=== PATIENT | male | born 1955 | race Caucasian/White ===

== ENCOUNTER 2020-01-30 21:31 | Emergency (ER) | payer OTHER ==
[2020-01-30 21:41] VITALS: TEMP 98
--- NOTE | 2020-01-30 22:11 | ED ---
Fall HPI - General Chief Complaint: Fall Stated Complaint: fall, head injury Time Seen by Provider: 01/30/20 21:49 Source: EMS Mode of arrival: EMS - History of Present Illness Initial Comments: This patient is 64-year-old man who presents to be evaluated after he fell on stairs tonight. The patient states that he was at home. He states he was going up the stairs and "I was carrying too much and had had a few drinks, lost my balance and fell." Patient indicates that he has a little bit of head pain in the area where he has a laceration or contusion. He states he also has some pain at the lower part of his neck. He believes that his last tetanus shot was given within the last 10 years. The patient's states that the patient was unconscious for up to a minute. MD Complaint: fall -: minutes(s) Fall From: down stairs (#) (15) When Fall Occurred: 1 hour [employer]HRO[employer] Fall Witnessed: yes, by family Place Fall Occurred: home Loss of Consciousness: yes Prolonged Down Time?: no Symptoms Prior to Fall: none Location: head, neck Severity: mild Quality: dull Context: tripped/slipped, alcohol use Associated Symptoms: headache, neck pain - Related Data Allergies Allergy/AdvReac Type Severity Reaction Status Date / Time bee pollen Allergy Anaphylaxis Verified 01/30/20 21:41 Review of Systems ROS Statement: Those systems with pertinent positive or pertinent negative responses have been documented in the HPI. ROS Other: All systems not noted in ROS Statement are negative. Constitutional: Denies: fever, weakness Eyes: Denies: vision change Respiratory: Denies: cough, dyspnea Cardiovascular: Denies: chest pain, palpitations, syncope Gastrointestinal: Denies: abdominal pain, nausea, vomiting Musculoskeletal: Denies: back pain Skin: Reports: lesions (Scalp laceration) Neurological: Reports: headache. Denies: weakness, numbness, confusion Hematological/Lymphatic: Denies: easy bleeding Past Medical History Past Medical History: Hypertension History of Any Multi-Drug Resistant Organisms: None Reported Past Surgical History: Hernia Repair Past Psychological History: No Psychological Hx Reported Smoking Status: Current some day smoker Past Alcohol Use History: Occasional Past Drug Use History: None Reported General Exam Limitations: no limitations General appearance: alert, in no apparent distress Head exam: Present: normocephalic, other (There is an approximately 3 cm scalp laceration to the right of the occiput. No palpable deformity. Minimal soft tissue tenderness. Minimal swelling) Eye exam: Present: normal appearance, PERRL, EOMI. Absent: scleral icterus, conjunctival injection Neck exam: Present: normal inspection. Absent: tenderness, meningismus Respiratory exam: Present: normal lung sounds bilaterally. Absent: respiratory distress, wheezes, rales, rhonchi, stridor Cardiovascular Exam: Present: regular rate, normal rhythm, normal heart sounds. Absent: systolic murmur, diastolic murmur, rubs, gallop GI/Abdominal exam: Present: soft. Absent: distended, tenderness, guarding, rebound, rigid, mass Extremities exam: Present: normal inspection, normal capillary refill. Absent: pedal edema, calf tenderness Back exam: Present: normal inspection. Absent: CVA tenderness (R), CVA tenderness (L), vertebral tenderness Neurological exam: Present: alert, oriented X3, CN II-XII intact. Absent: motor sensory deficit Skin exam: Present: warm, dry, intact, normal color. Absent: rash Course Vital Signs 01/30/20 21:36 Temperature 98 F Pulse Rate 92 Respiratory 16 Rate Blood Pressure 143/81 O2 Sat by Pulse 94 L Oximetry Procedures - Laceration Laceration #1 Consent Obtained: verbal consent Indication: laceration Site: scalp Size (cm): 3 Description: linear Depth: simple, single layer Anesthetic Used: lidocaine 1% Anesthesia Technique: local infiltration Amount (mls): 2 Type of Sutures: other (Hayes) Number of Sutures: 5 Technique: other (Hayes) Patient Tolerated Procedure: well, no complications Medical Decision Making - Lab Data Result diagrams: 01/30/20 22:08 01/30/20 22:08 Lab Results 01/30/20 01/30/20 01/30/20 Range/Units 22:08 22:08 22:08 WBC 8.4 (3.8-10.6) k/uL RBC 4.31 (4.30-5.90) m/uL Hgb 14.4 (13.0-17.5) gm/dL Hct 43.3 (39.0-53.0) % MCV 100.3 H (80.0-100.0) fL MCH 33.3 (25.0-35.0) pg MCHC 33.2 (31.0-37.0) g/dL RDW 12.9 (11.5-15.5) % Plt Count 136 L (150-450) k/uL Neutrophils % 46 % Lymphocytes % 37 % Monocytes % 7 % Eosinophils % 5 % Basophils % 1 % Neutrophils # 3.8 (1.3-7.7) k/uL Lymphocytes # 3.1 (1.0-4.8) k/uL Monocytes # 0.6 (0-1.0) k/uL Eosinophils # 0.4 (0-0.7) k/uL Basophils # 0.1 (0-0.2) k/uL PT 10.1 (9.0-12.0) sec INR 1.0 (<1.2) APTT 19.0 L (22.0-30.0) sec Sodium 138 (137-145) mmol/L Potassium 3.4 L (3.5-5.1) mmol/L Chloride 104 (98-107) mmol/L Carbon Dioxide 26 (22-30) mmol/L Anion Gap 8 mmol/L BUN 15 (9-20) mg/dL Creatinine 0.66 (0.66-1.25) mg/dL Est GFR (CKD-EPI)AfAm >90 (>60 ml/min/1.73 sqM) Est GFR (CKD-EPI)NonAf >90 (>60 ml/min/1.73 sqM) Glucose 123 H (74-99) mg/dL Calcium 9.2 (8.4-10.2) mg/dL Total Bilirubin 0.6 (0.2-1.3) mg/dL AST 71 H (17-59) U/L ALT 79 H (4-49) U/L Alkaline Phosphatase 78 (38-126) U/L Total Protein 6.6 (6.3-8.2) g/dL Albumin 4.3 (3.5-5.0) g/dL Serum Alcohol 216 H* mg/dL - EKG Data -: EKG Interpreted by Me EKG shows normal: sinus rhythm, axis (Normal), intervals (Normal), QRS complexes (Incomplete right bundle branch block.) Rate: normal (Rate 91 bpm) Disposition Clinical Impression: Fall, Head injury, Alcohol intoxication, Scalp laceration Disposition: HOME SELF-CARE Condition: Good Instructions (If sedation given, give patient instructions): Laceration (ED), Head Injury (ED) Is patient prescribed a controlled substance at d/c from ED?: No Referrals: Sebastian Friedman MD [Primary Care Provider] - 1-2 days
[2020-01-30 22:18] LABS: Basophils # (A) 0.1 k/uL (0-0.2); Basophils % (A) 1 %; Eosinophils # (A) 0.4 k/uL (0-0.7); Eosinophils % (A) 5 %; HCT 43.3 % (39.0-53.0); HGB 14.4 gm/dL (13.0-17.5); Lymphocytes # (A) 3.1 k/uL (1.0-4.8); Lymphocytes % (A) 37 %; MCH 33.3 pg (25.0-35.0); MCHC 33.2 g/dL (31.0-37.0); MCV 100.3 fL (80.0-100.0); Mean Platelet Volume 7.7; Monocytes # (A) 0.6 k/uL (0-1.0); Monocytes % (A) 7 %; Neutrophils # (A) 3.8 k/uL (1.3-7.7); Neutrophils % (A) 46 %; Platelet Count 136 k/uL (150-450); RBC 4.31 m/uL (4.30-5.90); RDW 12.9 % (11.5-15.5); WBC 8.4 k/uL (3.8-10.6)
[2020-01-30 22:26] LABS: ALT 79 U/L (4-49); AST 71 U/L (17-59); African American GFR (CKD) >90 (>60 ml/min/1.73 sqM); Albumin 4.3 g/dL (3.5-5.0); Alkaline Phosphatase 78 U/L (38-126); Anion Gap 8 mmol/L; Blood Urea Nitrogen 15 mg/dL (9-20); Calcium 9.2 mg/dL (8.4-10.2); Carbon Dioxide 26 mmol/L (22-30); Chloride 104 mmol/L (98-107); Glucose 123 mg/dL (74-99); Non-African American GFR(CKD) >90 (>60 ml/min/1.73 sqM); Potassium 3.4 mmol/L (3.5-5.1); Sodium 138 mmol/L (137-145); Total Bilirubin 0.6 mg/dL (0.2-1.3); Total Protein 6.6 g/dL (6.3-8.2)
[2020-01-30 22:29] LABS: Alcohol 216 mg/dL
[2020-01-30 22:33] LABS: Prothrombin Time 10.1 sec (9.0-12.0)
--- NOTE | 2020-01-30 22:34 | CT ---
EXAMINATION TYPE: CT brain cspine wo con DATE OF EXAM: 01/30/2020 COMPARISON: None HISTORY: Fall down stairs. CT DLP: 1421.4 mGycm Automated exposure control for dose reduction was used. There is cerebral atrophy. There is no mass effect nor midline shift. There is no sign of intracrania l hemorrhage. Calvarium is intact. Skull base is intact. There is normal aeration of the mastoid sinu ses. Cervical vertebra have normal spacing and alignment. Posterior elements are intact. Facet joints are intact. There is no evidence of cervical spine fracture. Prevertebral soft tissues appear normal. IMPRESSION: Mild cerebral atrophy. No acute intracranial abnormality. Negative CT scan cervical spine.
[2020-01-30] MEDS ORDERED: LIDOCAINE 1% INJ 10MG/ML (20 ML MDV) SQ ONE (23:02)
[2020-01-30 23:36] VITALS: BP 119/68; PULSE 88; RESP 20
== END 2020-01-30 23:36 | disposition home or self-care (01) ==
LOC: EC 21:31
DX: S01.01XA Laceration without foreign body of scalp, initial encounter (principal); F10.129 Alcohol abuse with intoxication, unspecified; F17.200 Nicotine dependence, unspecified, uncomplicated; Z91.030 Bee allergy status; W10.9XXA Fall (on) (from) unspecified stairs and steps, initial encounter; Y93.01 Activity, walking, marching and hiking; Y92.009 Unspecified place in unspecified non-institutional (private) residence as the place of occurrence of the external cause
CPT/HCPCS: 36415; 93005; 80053; 85025; 85610; 85730; 80320; 72125; 70450; 99284; 12002; J2001

== ENCOUNTER 2022-11-20 05:59 | Day surgery (SDC) | payer MEDICARE, OTHER ==
[2022-11-14 14:11] VITALS: BMI 26.6
[2022-11-20 06:31] VITALS: RESP 16; TEMP 97.6
[2022-11-20] MEDS ORDERED: LACTATED RINGERS 1,000 ML IV ONE (06:40)
[2022-11-20] MEDS ORDERED: LIDOCAINE 1% (10MG/ML) FOR IV START INTRADERMA ONE (06:40)
[2022-11-20 06:47] LABS: Glucose,Whole Blood 123 mg/dL (70-110)
[2022-11-20] MEDS ORDERED: LIDOCAINE 2% INJ 20 MG/ML (2 ML VIAL) ONE (07:00)
[2022-11-20] MEDS ORDERED: PROPOFOL 10 MG/ML 20 ML VIAL IV ONE (07:00)
--- NOTE | 2022-11-20 07:37 | P.PCN ---
Date of Procedure: 11/20/22 Procedure(s) Performed: BRIEF HISTORY: Patient is a 67-year-old pleasant white male scheduled for an elective colonoscopy as a part of evaluation of prior history of colon polyps and positive cologuard. PROCEDURE PERFORMED: Colonoscopy with biopsy and snare polypectomy. PREOPERATIVE DIAGNOSIS: History of colon polyps and positive cologuard. IV sedation per Anesthesia. PROCEDURE: After informed consent was obtained, the patient, was brought into the endoscopy unit. IV sedation was administered by Anesthesia under continuous monitoring. Digital rectal examination was normal. Initially the Olympus CF-160 flexible video colonoscope was then inserted in the rectum, gradually advanced into the cecum without any difficulty. Careful examination was performed as the scope was gradually being withdrawn. Ileocecal valve and the appendiceal orifice were visualized and appeared normal. Prep was excellent. Mucosa of the cecum, and a 3 mm polyp that was removed by cold biopsy. In the ascending colon there was another 3 mm polyp that was removed by cold biopsy. The hepatic flexure was a 2 mm sessile polyp removed by cold biopsy. Rest of the ascending colon, transverse colon, descending colon, appeared normal. The sigmoid colon there was a 5 mm and 1 cm polyp removed by snare polypectomy. In the rectum there was a 5 mm polyp that was removed by cold snare polypectomy. Scattered left-sided diverticulosis seen. Rest of the sigmoid colon, and rectum appeared normal. Retroflexion was performed in the rectum and no lesions were seen. The patient tolerated the procedure well. IMPRESSION: 3 mm cecal polyp status post cold biopsy 3 mm ascending colon polyp status post cold biopsy 2 mm hepatic flexure polyp status post cold biopsy 1 cm sigmoid colon polyp status post polypectomy 5 mm rectal polyp status post cold snare polypectomy Scattered sigmoid diverticulosis RECOMMENDATIONS: Findings of this examination were discussed with the patient as well as some his family. He was advised to follow with the biopsy results. If the biopsies adenoma he can have a repeat colonoscopy in 3 years..
[2022-11-20 07:44] LABS: Glucose,Whole Blood 130 mg/dL (70-110)
[2022-11-20 07:50] VITALS: BP 138/81; PULSE 78
== END 2022-11-20 08:29 | disposition home or self-care (01) ==
LOC: ORWHC2ENDO 05:59
PROVIDERS: ATTEND Internal Medicine Gastroenterology
DX: D12.2 Benign neoplasm of ascending colon (principal); D12.3 Benign neoplasm of transverse colon; D12.5 Benign neoplasm of sigmoid colon; D12.8 Benign neoplasm of rectum; I10 Essential (primary) hypertension; E78.5 Hyperlipidemia, unspecified; K57.30 Diverticulosis of large intestine without perforation or abscess without bleeding; Z86.010 Personal history of colon polyps; Z91.030 Bee allergy status; Z87.442 Personal history of urinary calculi; Z79.899 Other long term (current) drug therapy
CPT/HCPCS: 88305; 45380; 45385; J2704; J2001

== ENCOUNTER → 2023-03-17 | Outpatient (CLI) | payer MEDICARE, OTHER ==
[2023-03-17 09:40] LABS: African American GFR (CKD) >90 (>60 ml/min/1.73 sqM); Blood Urea Nitrogen 13 mg/dL (9-20); Non-African American GFR(CKD) >90 (>60 ml/min/1.73 sqM)
--- NOTE | 2023-03-17 12:30 | CT ---
EXAMINATION TYPE: CT urogram wo/w con CT DLP: 3320 mGycm, Automated exposure control for dose reduction was used. DATE OF EXAM: 03/17/2023 11:20 AM COMPARISON: None CLINICAL INDICATION:Male, 68 years old with history of R31.9 hematuria; PHH, Hematuria TECHNIQUE: Urogram of the abdomen and pelvis was performed before and after the administration of 100 cc of IV c ontrast Isovue 300 contrast. Delayed imaging was performed. Coronal and sagittal reformats were perfo rmed. One or more CT dose reduction strategies were utilized during this examination. 2D and 3D recon structions are performed to assist visualization of the urinary tract on a separate workstation. FINDINGS: GENITOURINARY: RIGHT KIDNEY AND URETER: Nonobstructive right upper pole 6 mm calculus. No hydronephrosis or hydroure ter. No renal mass or other lesions. No urothelial lesions: no filling defect, dilation, stricture or wall thickening. LEFT KIDNEY AND URETER: No calculi. No hydronephrosis or hydroureter. No renal mass or other lesions. No urothelial lesions: no filling defect, dilation, stricture or wall thickening. URINARY BLADDER: There is a lobulated filling defect extending from the left lateral urinary bladder wall measuring 2.0 x 1.2 x 1.5 cm (series 15, image 81 and series 17, image 101). REPRODUCTIVE: Unremarkable. ABDOMEN LIVER: Diffusely hypoattenuating, consistent with hepatic steatosis.. Enlarged measuring 24.7 cm in C C dimension. GALLBLADDER AND BILE DUCTS: Mildly distended gallbladder. No biliary duct dilatation. PANCREAS: Unremarkable. SPLEEN: Unremarkable. ADRENAL GLANDS: Unremarkable. STOMACH AND BOWEL: Distal colonic diverticulosis without evidence for acute diverticulitis. No eviden ce of bowel obstruction. PERITONEUM: No evidence of pneumoperitoneum or adenopathy. Trace free fluid in the pelvis. VASCULATURE: Atherosclerotic calcifications are present throughout the abdominal aorta and its branch es. No abdominal aortic aneurysm. MUSCULOSKELETAL: . SOFT TISSUE/ABDOMINAL WALL: Small fat filled periumbilical hernia. Post surgical changes from right i nguinal hernia repair. LOWER CHEST: Bibasilar linear scarring and/or atelectasis.. IMPRESSION: 1. Left urinary bladder wall lobulated 2.0 cm mass concerning for bladder malignancy until proven oth erwise. Direct visualization is recommended. 2. No evidence of renal neoplasm. 3. Nonobstructive 6 mm right renal calculus. 4. Colonic diverticulosis without evidence for acute diverticulitis. 5. Hepatic steatosis with hepatomegaly.
== END | disposition home or self-care (01) ==
LOC: RADCTMAIN 08:49
PROVIDERS: ATTEND Urology
DX: N20.0 Calculus of kidney (principal); K57.30 Diverticulosis of large intestine without perforation or abscess without bleeding; K76.0 Fatty (change of) liver, not elsewhere classified; N32.89 Other specified disorders of bladder; R16.0 Hepatomegaly, not elsewhere classified; R31.0 Gross hematuria
CPT/HCPCS: 82565; 84520; 74178; 36415; 74400; Q9967

== ENCOUNTER → 2024-06-09 | Outpatient (CLI) | payer MEDICARE, OTHER ==
--- NOTE | 2024-06-09 22:40 | MR ---
EXAMINATION TYPE: MR liver wo/w con DATE OF EXAM: 06/09/2024 9:41 PM INDICATION: Patient age:Male; 69 years old; Reason for study: K74.60; PHH. COMPARISON: CT urogram 02/18/2023 TECHNIQUE: Multiplanar multi-sequence imaging was performed without and with IV contrast. The patien t was given 7.5 ccs of Gadobutrol intravenously and dynamic imaging was performed. Post IV contrast s ubtraction images were also submitted for review. FINDINGS: LOWER CHEST: Bibasilar linear scarring. Bilateral gynecomastia. ABDOMEN Liver: Enlarged liver measuring 23.7 cm in CC dimension. T2 hypointense/T1 hyperintense 2.9 cm lesion within segment 8 of the liver (series 901, image 105). This demonstrates central heterogenous nonrim arterial enhancement with washout (series 1002, image 106). A capsule is demonstrated on delayed mario ging. No restricted diffusion. Additional subcentimeter scattered T1 hyperintense foci throughout the liver. A couple demonstrate ar terial enhancement without washout (series 1001, image 551 and 566). No restricted diffusion. Diffuse marked hepatic signal dropout on out of phase imaging consistent with steatosis. Mild diffuse hepatic surface nodularity identified. Recanalization of the umbilical vein. Gallbladder and Bile ducts: Mildly distended gallbladder without wall thickening or surrounding infla mmatory changes. No filling defects to suggest cholelithiasis. No biliary duct dilatation. Pancreas: Unremarkable. Spleen: Unremarkable. Adrenal glands: Unremarkable. Kidneys: Unremarkable. Stomach and Bowel: Unremarkable as visualized. Peritoneum: No evidence of pneumoperitoneum, free fluid, or adenopathy. Vasculature: Unremarkable. No aortic aneurysm. Abdominal wall: Tiny fat filled umbilical hernia. Musculoskeletal: The osseous structures appear intact. IMPRESSION: Hepatic cirrhosis with diffuse steatosis and hepatomegaly. There is an LR-5 lesion measuring 2.9 cm i n segment 8 of the liver highly concerning for hepatocellular carcinoma. Additional scattered subcent imeter hepatic nodules with characteristics suggestive of regenerative/dysplastic nodules. Correlate with tumor biomarkers. [facility] Bernadine Rosales, , 06/09/2024 10:38 PM
== END | disposition home or self-care (01) ==
LOC: RADMRIMAIN 21:00
PROVIDERS: ATTEND Internal Medicine Gastroenterology
DX: K74.60 Unspecified cirrhosis of liver (principal); R16.0 Hepatomegaly, not elsewhere classified
CPT/HCPCS: 74183; A9585

== ENCOUNTER 2024-10-29 08:58 | Day surgery (SDC) | payer MEDICARE, OTHER ==
[2024-10-28 11:56] VITALS: BMI 28.4
[2024-10-29] MEDS: IV FLUID CONTINUATION 1,000 ML IV ONE (09:40)
[2024-10-29] MEDS: LACTATED RINGERS 1,000 ML IV SCH (09:40)
[2024-10-29] MEDS: LIDOCAINE 1% (10MG/ML) FOR IV START INTRADERMA PRN (09:40)
[2024-10-29 09:51] VITALS: TEMP 97.6
[2024-10-29 09:54] LABS: Glucose,Whole Blood 141 mg/dL (70-110)
[2024-10-29] MEDS ORDERED: PROPOFOL 10 MG/ML 20 ML VIAL IV ONE (10:30)
[2024-10-29] MEDS ORDERED: LIDOCAINE 1% INJ 10MG/ML (20 ML MDV) ONE (10:30)
--- NOTE | 2024-10-29 10:43 | P.PCN ---
Date of Procedure: 10/29/24 Procedure(s) Performed: BRIEF HISTORY: Patient is a 69-year-old, pleasant, white male with history of hereditary hemochromatosis and alcohol abuse/recently diagnosed with liver cirrhosis scheduled for an upper endoscopy to screen for esophageal varices. PROCEDURE PERFORMED: Esophagogastroduodenoscopy with biopsy. PREOPERATIVE DIAGNOSIS: History of liver cirrhosis screening for esophageal varices. IV sedation per anesthesia. PROCEDURE: After informed consent was obtained, the patient was brought into the endoscopy unit. IV sedation was administered by Anesthesia under continuous monitoring. Initially the Olympus GIF-140 video endoscope was inserted into the mouth. Esophagus intubated without any difficulty. It was gradually advanced into the stomach and duodenum and carefully examined. The bulb and the second part of the duodenum appeared normal. The scope at this time was withdrawn to the stomach, adequately insufflated with air, and upon careful examination, mucosa of the antrum, body, cardia and the fundus and congested appearing mucosa consistent with mild portal hypertensive gastropathy. No gastric varices identified.. The scope was then withdrawn into the esophagus. Small hiatal hernia noted. The GE junction was located at 40 cm from the incisors. There was a 1.5 cm tongues of Chin's appearing mucosa proximal to the GE junction that was biopsied. There was very small distal esophageal varices seen with no stigmata of red carrie arreola. The rest of the esophagus appeared normal. There were no erosions or ulcerations seen and the patient tolerated the procedure well. IMPRESSION: 1. Very small distal esophageal varices. 2. Small hiatal hernia 3. 1.5 cm Of Chin's appearing mucosa just proximal to the GE junction status post biopsy 4. Mild to moderate portal hypertensive gastropathy. RECOMMENDATIONS: The findings of this examination were discussed with the patient as well as his family. He was advised to follow-up with the biopsy results. Recommended repeat upper endoscopy in 2 years. Advised to abstain from alcohol..
[2024-10-29 11:10] VITALS: BP 129/73; PULSE 80; RESP 16
== END 2024-10-29 11:25 | disposition home or self-care (01) ==
LOC: ORWHC2ENDO 08:58
PROVIDERS: ATTEND Internal Medicine Gastroenterology
DX: K31.89 Other diseases of stomach and duodenum (principal); I85.10 Secondary esophageal varices without bleeding; K74.60 Unspecified cirrhosis of liver; K22.70 Barrett's esophagus without dysplasia; K44.9 Diaphragmatic hernia without obstruction or gangrene; K76.6 Portal hypertension; F10.90 Alcohol use, unspecified, uncomplicated; I10 Essential (primary) hypertension; E78.5 Hyperlipidemia, unspecified; E11.9 Type 2 diabetes mellitus without complications; Z87.891 Personal history of nicotine dependence; Z87.442 Personal history of urinary calculi; Z91.030 Bee allergy status; Z79.899 Other long term (current) drug therapy
CPT/HCPCS: 43239; J2003; J2704; 88305